=== PATIENT | female | born 1970 | race Caucasian/White ===

== ENCOUNTER 2016-11-30 21:54 | Emergency (ER) | payer SELFPAY ==
[2016-11-30 22:27] VITALS: TEMP 97.9; BMI 26.9
--- NOTE | 2016-11-30 23:15 | PDOC ---
History of Present Illness - General History Source: Patient Exam Limitations: No Limitations - History of Present Illness Initial Comments: 12/01/16 01:58 The patient is a 46-year-old female with no significant past medical history, and presents to the emergency department with shortness of breath one hour prior to arrival to the ED. She states she was in a heated argument and suddenly felt like she couldnt breathe. She states she experienced a similar episode one week ago after getting angry. She notes associated chest pain under the right breast with a pressure-like sensation, non-radiating, and 5/10 in severity. She also complains of a headache currently. The patient denies diaphoresis, leg swelling, dizziness. The patient denies fever, chills, nausea, vomit, diarrhea and constipation. The patient denies dysuria, frequency, urgency and hematuria. Allergies: NKDA Past Surgical History: one Social History: No toxic habits reported Family PMHx: parents have HTN <Navya Madison - Last Filed: 12/01/16 02:10> <Michelle Moy - Last Filed: 12/01/16 05:10> - General Chief Complaint: Shortness of Breath Stated Complaint: S.O.B Time Seen by Provider: 11/30/16 23:02 Past History <Navya Madison - Last Filed: 12/01/16 02:10> - Past Medical History Other medical history: Pt denies - Suicide/Smoking/Psychosocial Hx Smoking History: Never smoked Have you smoked in the past 12 months: No Information on smoking cessation initiated: No Hx Alcohol Use: No Drug/Substance Use Hx: No Substance Use Type: None <Michelle Moy - Last Filed: 12/01/16 05:10> - Past Medical History Allergies/Adverse Reactions: Allergies Allergy/AdvReac Type Severity Reaction Status Date / Time No Known Allergies Allergy Verified 11/30/16 22:24 Review of Systems - Review of Systems Able to Perform ROS?: Yes Comments:: 12/01/16 01:58 GENERAL/CONSTITUTIONAL: No fever or chills. No weakness. HEAD, EYES, EARS, NOSE AND THROAT: No change in vision. No ear pain or discharge. No sore throat. CARDIOVASCULAR: (+) Chest pain. RESPIRATORY: (+) Shortness of breath. No cough, wheezing, or hemoptysis. GASTROINTESTINAL: No nausea, vomiting, diarrhea or constipation. GENITOURINARY: No dysuria, frequency, or change in urination. MUSCULOSKELETAL: No joint or muscle swelling or pain. No neck or back pain. SKIN: No rash NEUROLOGIC: (+) Headache. No vertigo, loss of consciousness, or change in strength/sensation. ENDOCRINE: No increased thirst. No abnormal weight change. HEMATOLOGIC/LYMPHATIC: No anemia, easy bleeding, or history of blood clots. ALLERGIC/IMMUNOLOGIC: No hives or skin allergy. <oRldan Madisona - Last Filed: 12/01/16 02:10> *Physical Exam - Vital Signs Last Vital Signs Temp Pulse Resp BP Pulse Ox 97.9 F 73 18 157/105 100 11/30/16 22:25 11/30/16 22:25 11/30/16 22:25 11/30/16 22:25 11/30/16 22:25 - Physical Exam Comments: 12/01/16 02:10 GENERAL: Awake, alert, and fully oriented, in no acute distress HEAD: No signs of trauma EYES: PERRLA, EOMI, sclera anicteric, conjunctiva clear ENT: Auricles normal inspection, hearing grossly normal, nares patent, oropharynx clear without exudates. Moist mucosa NECK: Normal ROM, supple, no lymphadenopathy, JVD, or masses LUNGS: Breath sounds equal, clear to auscultation bilaterally. No wheezes, and no crackles HEART: Regular rate and rhythm, normal S1 and S2, no murmurs, rubs or gallops ABDOMEN: Soft, nontender, normoactive bowel sounds. No guarding, no rebound. No masses EXTREMITIES: Normal range of motion, no edema. No clubbing or cyanosis. No cords, erythema, or tenderness NEUROLOGICAL: Cranial nerves II through XII grossly intact. Normal speech, normal gait SKIN: Warm, Dry, normal turgor, no rashes or lesions noted. <Roldan Madisona - Last Filed: 12/01/16 02:10> - Vital Signs Last Vital Signs Temp Pulse Resp BP Pulse Ox 97.9 F 73 18 157/105 100 11/30/16 22:25 11/30/16 22:25 11/30/16 22:25 11/30/16 22:25 11/30/16 22:25 <Michelle Moy - Last Filed: 12/01/16 05:10> ED Treatment Course - ADDITIONAL ORDERS Additional order review: Laboratory Results 11/30/16 11/30/16 23:45 23:45 Urine Color Yellow Urine Appearance Slcloudy Urine pH 5.0 Urine Protein Negative Urine Glucose (UA) Negative Urine Ketones Negative Urine Blood 1+ H Urine Nitrite Negative Urine Bilirubin Negative Urine Urobilinogen Negative Urine HCG, Qual Negative <Navya Madison - Last Filed: 12/01/16 02:10> Medical Decision Making - Medical Decision Making 12/01/16 05:07 Pt comes with chest pain after an argument with friend/family. Pt has normal EKG and CXR; she has elevated BP on arrival. Pt states that she never had HTN. AFter treatment in the ER and resting in the ER, pt continues to have High BP ; Systolic BP is 150 bilateral arms. Pt has CAMARGO. She will be treated with a dose of percocet. Otherwise her CP has resolved and she is feeling better. Pt will follow with PMD. <Michelle Moy - Last Filed: 12/01/16 05:10> *DC/Admit/Observation/Transfer - Attestations Scribe Attestion: 12/01/16 01:58 Documentation prepared by Navya Madison, acting as medical billing assistant for Michelle Moy MD. <Navya Madison - Last Filed: 12/01/16 02:10> - Discharge Dispostion Admit: No <Michelle Moy - Last Filed: 12/01/16 05:10> Diagnosis at time of Disposition: Chest pain, atypical - Discharge Dispostion Disposition: HOME Condition at time of disposition: Stable - Patient Instructions Printed Discharge Instructions: DI for Atypical Chest Pain, Low-Sodium Diet, Lower Sodium Intake Associated with Lower Blood Pressures and Decreased Str Print Language: ALGERIAN
[2016-11-30 23:57] LABS: URINE APPEARANCE SLCLOUDY; URINE BILIRUBIN NEGATIVE (NEGATIVE); URINE BLOOD 1+ (NEGATIVE); URINE COLOR YELLOW; URINE GLUCOSE (UA) NEGATIVE (NEGATIVE); URINE KETONE NEGATIVE (NEGATIVE); URINE NITRITE NEGATIVE (NEGATIVE); URINE PROTEIN NEGATIVE (NEGATIVE); URINE UROBILINOGEN NEGATIVE mg/dL (0.2-1.0)
[2016-12-01 02:03] VITALS: BP 141/79; PULSE 82
[2016-12-01 11:40] LABS: URINE LEUK ESTERASE Negative (NEGATIVE)
--- NOTE | 2016-12-01 12:41 | EKG ---
Test Reason : Blood Pressure : / mmHG Vent. Rate : 063 BPM Atrial Rate : 063 BPM P-R Int : 166 ms QRS Dur : 100 ms QT Int : 410 ms P-R-T Axes : 004 -26 008 degrees QTc Int : 419 ms NORMAL SINUS RHYTHM NORMAL ECG NO PREVIOUS ECGS AVAILABLE Confirmed by TRAV DAVIS MD ([id number]) on 12/01/2016 12:41:23 PM Referred By: Confirmed By:TRAV DAVIS MD
== END 2016-12-01 02:03 | disposition home or self-care (01) ==
LOC: JER 21:54
DX: R07.89 Other chest pain (principal)
CPT/HCPCS: 71020-TC; 81003; 81015; 84703; 93005; 93010; 99282-25